=== PATIENT | female | born 1965 | race Caucasian/White ===

== ENCOUNTER 2016-05-04 23:22 | Emergency (ER) | payer OTHER ==
[2016-05-04 23:41] VITALS: O2SAT 97
--- NOTE | 2016-05-05 00:02 | ERPHSYRPT ---
- History of Present Illness Time Seen by Provider: 05/04/16 23:46 Historian: patient Exam Limitations: no limitations Patient Subjective Stated Complaint: "ITS LIKE I HAVE AN ATTACK, LIKE I ATE AND NOTHING WILL GO DOWN-THE PAIN GOES INTO MY BACK, IT FEELS LIKE I AM HAVING A HEART ATTACK." PT STATES SHE HAS DIARRHEA AND ABD CRAMPING SOON AFTER MEALS Triage Nursing Assessment: PT IS AOX3, AMBULATORY WITH RIGID GAIT TO TRT ROOM, UNABLE TO BEND OVER WITH SOME ABD GUARDING, DISTENDED ABDOMEN, SKIN IS PALE, WARM AND DRY. RESP ARE SHALLOW PER PAIN. Physician History: Patient is a 50-year-old female with her complaining of another "attack " consisting of pain in her abdomen. She's had a few "attacks" since . She's been to the ER twice for these and the other 2 attacks she has managed at home. She has been seen at 2 different ERs in the past. At time she is a poor historian. Today she had diarrhea this morning. Then this evening after eating a minute milkshake which she thought would help her feel better she had severe abdominal pain going through to her back. At times she feels like food does not go on through. She states she has been evaluated with a study on her gallbladder and the surgeon thought it was normal at this time. She is scheduled to have an upper GI scope performed on May 21. She does not know if she can make it that long. She has had reflux in the past for which she takes omeprazole. She has had a gynecologic surgery in the past. She does not smoke. She has an occasional drink. Timing/Duration: today, sudden Activities at Onset: other (eating) Quality: stabbing Abdominal Pain Onset Location: epigastric Pain Radiation: back Severity of Pain-Max: severe Severity of Pain-Current: moderate Modifying Factors: Improves With: eating Associated Symptoms: diarrhea Previous symptoms: same symptoms as today Allergies/Adverse Reactions: No Known Drug Allergies Allergy (Unverified 05/04/16 23:41) Home Medications: Omeprazole [Prilosec] 40 mg PO BID 05/04/16 [History] Hx Tetanus, Diphtheria Vaccination/Date Given: Yes Hx Influenza Vaccination/Date Given: No Hx Pneumococcal Vaccination/Date Given: No Immunizations Up to Date: Yes - Review of Systems Constitutional: No Fever, No Chills Eyes: No Symptoms Ears, Nose, & Throat: No Symptoms Respiratory: No Cough, No Dyspnea Cardiac: No Chest Pain, No Edema, No Syncope Abdominal/Gastrointestinal: Abdominal Pain, Diarrhea Genitourinary Symptoms: No Dysuria Musculoskeletal: No Back Pain, No Neck Pain Skin: No Rash Neurological: No Dizziness, No Focal Weakness, No Sensory Changes Psychological: No Symptoms Endocrine: No Symptoms Hematologic/Lymphatic: No Symptoms Immunological/Allergic: No Symptoms All Other Systems: Reviewed and Negative - Past Medical History Pertinent Past Medical History: Yes Musculoskeletal History: Other Other Medical History: NICKOLAS CARPAL TUNNEL - Past Surgical History Past Surgical History: Yes Musculoskeletal: Orthopedic Surgery Female Surgical History: Dilation & Curettage, Other Other Surgical History: THERMAL ABLATION, CARPAL TUNNEL REPAIR - Social History Smoking Status: Never smoker Exposure to second hand smoke: No Drug Use: none Patient Lives Alone: No - Female History Hx Last Menstrual Period: NA - Nursing Vital Signs Nursing Vital Signs: Initial Vital Signs Temperature 98.0 F Temperature Source Oral Pulse Rate 69 Respiratory Rate 18 Blood Pressure [Right Arm] 129/77 Pain Intensity 7 - Physical Exam General Appearance: mild distress Eye Exam: PERRL/EOMI, eyes nml inspection Ears, Nose, Throat Exam: normal ENT inspection, pharynx normal, moist mucous membranes Neck Exam: normal inspection, non-tender, supple, full range of motion Respiratory Exam: normal breath sounds, lungs clear, No respiratory distress Cardiovascular Exam: regular rate/rhythm, normal heart sounds Gastrointestinal/Abdomen Exam: tenderness (mild epigastric) Pelvic Exam: not done Rectal Exam: not done Back Exam: normal inspection Extremity Exam: normal inspection, normal range of motion, pelvis stable Neurologic Exam: alert, oriented x 3, cooperative, normal mood/affect, nml cerebellar function, sensation nml, No motor deficits Skin Exam: normal color, warm, dry SpO2 Interpretation: normal SpO2: 97 Oxygen Delivery: Room Air - Radiology Exams Abdomen X-ray Interpretation: Interpreted by me, Negative Ordered Tests: Active Orders 24 hr Category Date Time Status IV Insertion STAT Care 05/05/16 00:06 Active KUB Stat Exams 05/05/16 00:07 Taken CBC W DIFF Stat Lab 05/05/16 00:24 Completed CMP Stat Lab 05/05/16 00:24 Completed HCG QUALITATIVE,SERUM Stat Lab 05/05/16 00:24 Completed LIPASE Stat Lab 05/05/16 01:04 Completed Lactic Acid Urgent Lab 05/05/16 00:20 Completed TROPONIN Stat Lab 05/05/16 00:24 Completed UA Stat Lab 05/05/16 00:20 Completed Urine Triage Profile Stat Lab 05/05/16 00:20 Completed Medication Summary Discontinued Medications Generic Name Dose Route Start Last Admin Trade Name Barbara PRN Reason Stop Dose Admin Sodium Chloride 1,000 mls @ 999 mls/hr 05/05/16 00:06 05/05/16 00:30 Sodium Chloride 0.9% 1000 Ml IV 05/05/16 01:06 999 mls/hr .Q1H1M STA Administration Sodium Chloride Confirm 05/05/16 00:25 Sodium Chloride 0.9% 1000 Ml Administered 05/05/16 00:26 Dose 1,000 mls @ ud .ROUTE .STK-MED ONE Ketorolac Tromethamine 30 mg 05/05/16 00:06 05/05/16 00:30 Toradol 30 Mg Injection IV 05/05/16 00:07 30 mg STAT ONE Administration Ketorolac Tromethamine Confirm 05/05/16 00:25 Toradol 30 Mg Injection Administered 05/05/16 00:26 Dose 30 mg .ROUTE .STK-MED ONE Morphine Sulfate 4 mg 05/05/16 01:05 05/05/16 01:17 Morphine Sulfate 4 Mg Inj IV 05/05/16 01:06 4 mg STAT ONE Administration Morphine Sulfate Confirm 05/05/16 01:10 Morphine Sulfate 4 Mg Inj Administered 05/05/16 01:11 Dose 4 mg .ROUTE .STK-MED ONE Ondansetron HCl 4 mg 05/05/16 00:06 05/05/16 00:30 Zofran 4 Mg/2 Ml Vial IV 05/05/16 00:07 4 mg STAT ONE Administration Ondansetron HCl Confirm 05/05/16 00:25 Zofran 4 Mg/2 Ml Vial Administered 05/05/16 00:26 Dose 4 mg .ROUTE .STK-MED ONE Lab/Rad Data: Laboratory Result Diagrams 05/05/16 00:24 05/05/16 00:24 Laboratory Results 05/05/16 05/05/16 05/05/16 Range/Units 01:04 00:24 00:24 WBC (4.0-10.5) K/mm3 RBC (4.1-5.4) M/mm3 Hgb (12.0-16.0) gm/dl Hct (35-47) % MCV (78-100) fl MCH (26-32) pg MCHC (32-36) g/dl RDW (11.5-14.0) % Plt Count (150-450) K/mm3 MPV (6-9.5) fl Gran % (36.0-66.0) % Lymphocytes % (24.0-44.0) % Monocytes % (0.0-12.0) % Eosinophils % (0.00-5.0) % Basophils % (0.0-0.4) % Basophils # (0-0.4) Sodium 139 (136-145) mEq/L Potassium 3.9 (3.5-5.1) mEq/L Chloride 103 (98-107) mEq/L Carbon Dioxide 28.4 (21-32) mEq/L Anion Gap 11.1 (5-15) MEQ/L BUN 9 (9-20) mg/dL Creatinine 0.93 (0.55-1.30) mg/dl Estimated GFR > 60 ML/MIN Glucose 115 H (70-110) MG/DL Lactic Acid (0.4-2.0) Calcium 9.0 (8.5-10.1) mg/dL Total Bilirubin 0.6 (0.2-1.0) mg/dL AST 184 H (15-37) U/L ALT 103 H (12-78) U/L Alkaline Phosphatase 97 (46-116) U/L Troponin I < 0.017 (0.000-0.056) ng/ml Serum Total Protein 8.1 (6.4-8.2) gm/dL Albumin 4.0 (3.4-5.0) g/dL Lipase 217 (73-393) U/L Serum , Qual NEGATIVE (Negative) Ur Collection Type Urine Color (YELLOW) Urine Appearance (CLEAR) Urine pH (5-6) Ur Specific Pierson (1.005-1.025) Urine Protein (Negative) Urine Glucose (UA) (NEGATIVE) mg/dL Urine Ketones (NEGATIVE) Urine Nitrite (NEGATIVE) Urine Bilirubin (NEGATIVE) Urine Urobilinogen (0-1) mg/dL Urine WBC (Auto) (NEGATIVE) Urine RBC (Auto) (0-5) Cheng/ul Urine Opiates Level (NEGATIVE) Ur Methadone (NEGATIVE) Urine Barbiturates (NEGATIVE) Ur Phencyclidine (PCP) (NEGATIVE) Urine Amphetamine (NEGATIVE) U Benzodiazepine Level (NEGATIVE) Urine Cocaine (NEGATIVE) Urine Marijuana (THC) (NEGATIVE) Specimen Received 05/05/16 05/05/16 05/05/16 Range/Units 00:24 00:20 00:20 WBC 9.3 (4.0-10.5) K/mm3 RBC 4.61 (4.1-5.4) M/mm3 Hgb 14.3 (12.0-16.0) gm/dl Hct 43.4 (35-47) % MCV 94.1 (78-100) fl MCH 31.0 (26-32) pg MCHC 32.9 (32-36) g/dl RDW 13.6 (11.5-14.0) % Plt Count 221 (150-450) K/mm3 MPV 10.7 H (6-9.5) fl Gran % 73.9 H (36.0-66.0) % Lymphocytes % 16.7 L (24.0-44.0) % Monocytes % 8.3 (0.0-12.0) % Eosinophils % 0.8 (0.00-5.0) % Basophils % 0.3 (0.0-0.4) % Basophils # 0.03 (0-0.4) Sodium (136-145) mEq/L Potassium (3.5-5.1) mEq/L Chloride (98-107) mEq/L Carbon Dioxide (21-32) mEq/L Anion Gap (5-15) MEQ/L BUN (9-20) mg/dL Creatinine (0.55-1.30) mg/dl Estimated GFR ML/MIN Glucose (70-110) MG/DL Lactic Acid (0.4-2.0) Calcium (8.5-10.1) mg/dL Total Bilirubin (0.2-1.0) mg/dL AST (15-37) U/L ALT (12-78) U/L Alkaline Phosphatase (46-116) U/L Troponin I (0.000-0.056) ng/ml Serum Total Protein (6.4-8.2) gm/dL Albumin (3.4-5.0) g/dL Lipase (73-393) U/L Serum , Qual (Negative) Ur Collection Type CLEAN CATCH Urine Color YELLOW (YELLOW) Urine Appearance CLEAR (CLEAR) Urine pH 7.0 (5-6) Ur Specific Pierson 1.020 (1.005-1.025) Urine Protein NEGATIVE (Negative) Urine Glucose (UA) NEGATIVE (NEGATIVE) mg/dL Urine Ketones NEGATIVE (NEGATIVE) Urine Nitrite NEGATIVE (NEGATIVE) Urine Bilirubin NEGATIVE (NEGATIVE) Urine Urobilinogen 4 (0-1) mg/dL Urine WBC (Auto) NEGATIVE (NEGATIVE) Urine RBC (Auto) NEGATIVE (0-5) Cheng/ul Urine Opiates Level NEG. (NEGATIVE) Ur Methadone NEG. (NEGATIVE) Urine Barbiturates NEG. (NEGATIVE) Ur Phencyclidine (PCP) NEG. (NEGATIVE) Urine Amphetamine NEG. (NEGATIVE) U Benzodiazepine Level NEG. (NEGATIVE) Urine Cocaine NEG. (NEGATIVE) Urine Marijuana (THC) NEG. (NEGATIVE) Specimen Received 05/05/16:0020 05/05/16 Range/Units 00:20 WBC (4.0-10.5) K/mm3 RBC (4.1-5.4) M/mm3 Hgb (12.0-16.0) gm/dl Hct (35-47) % MCV (78-100) fl MCH (26-32) pg MCHC (32-36) g/dl RDW (11.5-14.0) % Plt Count (150-450) K/mm3 MPV (6-9.5) fl Gran % (36.0-66.0) % Lymphocytes % (24.0-44.0) % Monocytes % (0.0-12.0) % Eosinophils % (0.00-5.0) % Basophils % (0.0-0.4) % Basophils # (0-0.4) Sodium (136-145) mEq/L Potassium (3.5-5.1) mEq/L Chloride (98-107) mEq/L Carbon Dioxide (21-32) mEq/L Anion Gap (5-15) MEQ/L BUN (9-20) mg/dL Creatinine (0.55-1.30) mg/dl Estimated GFR ML/MIN Glucose (70-110) MG/DL Lactic Acid 1.2 (0.4-2.0) Calcium (8.5-10.1) mg/dL Total Bilirubin (0.2-1.0) mg/dL AST (15-37) U/L ALT (12-78) U/L Alkaline Phosphatase (46-116) U/L Troponin I (0.000-0.056) ng/ml Serum Total Protein (6.4-8.2) gm/dL Albumin (3.4-5.0) g/dL Lipase (73-393) U/L Serum , Qual (Negative) Ur Collection Type Urine Color (YELLOW) Urine Appearance (CLEAR) Urine pH (5-6) Ur Specific Pierson (1.005-1.025) Urine Protein (Negative) Urine Glucose (UA) (NEGATIVE) mg/dL Urine Ketones (NEGATIVE) Urine Nitrite (NEGATIVE) Urine Bilirubin (NEGATIVE) Urine Urobilinogen (0-1) mg/dL Urine WBC (Auto) (NEGATIVE) Urine RBC (Auto) (0-5) Cheng/ul Urine Opiates Level (NEGATIVE) Ur Methadone (NEGATIVE) Urine Barbiturates (NEGATIVE) Ur Phencyclidine (PCP) (NEGATIVE) Urine Amphetamine (NEGATIVE) U Benzodiazepine Level (NEGATIVE) Urine Cocaine (NEGATIVE) Urine Marijuana (THC) (NEGATIVE) Specimen Received - Progress Progress: improved Progress Note: 05/05/16 01:28 After NS 1000 ml, toradol 30 mg, and MSO4 4 mg IV, pt is feeling much better. Counseled pt/family regarding: lab results, diagnosis, need for follow-up, rad results - Departure Time of Disposition: 01:29 Departure Disposition: Home Clinical Impression: Abdominal pain Condition: Stable Critical Care Time: No Additional Instructions: Tylenol and Ibuprofen as needed. Follow up with the scheduled appt with the surgeon on May 21.
[2016-05-05] MEDS ORDERED: TORAdol 30 mg Injection IV ONE (00:06)
[2016-05-05] MEDS ORDERED: Zofran 4 MG/2 ML VIAL IV ONE (00:06)
[2016-05-05] MEDS ORDERED: Sodium Chloride 0.9% 1000 ML 1,000 ML IV STA (00:06)
[2016-05-05] MEDS ORDERED: Zofran 4 MG/2 ML VIAL ONE (00:25)
[2016-05-05] MEDS ORDERED: Sodium Chloride 0.9% 1000 ML 1,000 ML ONE (00:25)
[2016-05-05] MEDS ORDERED: TORAdol 30 mg Injection ONE (00:25)
[2016-05-05 00:28] LABS: BASOPHIL % 0.3 % (0.0-0.4); Eosinophil % 0.8 % (0.00-5.0); Granulocytes % 73.9 % (36.0-66.0); Lymphocytes % 16.7 % (24.0-44.0); Mean Cell Volume 94.1 fl (78-100); Mean Platelet Volume 10.7 fl (6-9.5); Monocytes % 8.3 % (0.0-12.0); Platelet Count 221 K/mm3 (150-450); Red Blood Count 4.61 M/mm3 (4.1-5.4); Red Cell Distribution Width 13.6 % (11.5-14.0); White Blood Count 9.3 K/mm3 (4.0-10.5)
[2016-05-05 00:29] LABS: Collection Type CLEAN CATCH
[2016-05-05 00:30] LABS: COMPLETE URINE MICROSCOPIC? NO
[2016-05-05 00:51] LABS: ALKALINE PHOSPHATASE 97 U/L (46-116); ANION GAP 11.1 MEQ/L (5-15); BILIRUBIN,TOTAL 0.6 mg/dL (0.2-1.0); BLOOD UREA NITROGEN 9 mg/dL (9-20); CHLORIDE 103 mEq/L (98-107); Carbon Dioxide 28.4 mEq/L (21-32); Glucose 115 MG/DL (70-110); Potassium 3.9 mEq/L (3.5-5.1); SGOT/AST 184 U/L (15-37); SGPT/ALT 103 U/L (12-78); SODIUM 139 mEq/L (136-145); Total Protein 8.1 gm/dL (6.4-8.2)
[2016-05-05 00:52] LABS: TROPONIN < 0.017 ng/ml (0.000-0.056)
[2016-05-05] MEDS ORDERED: MORPHINE SULFATE 4 MG INJ IV ONE (01:05)
[2016-05-05] MEDS ORDERED: MORPHINE SULFATE 4 MG INJ ONE (01:10)
[2016-05-05 01:42] VITALS: BP 127/87; PULSE 64
--- NOTE | 2016-05-05 08:59 | XRAY ---
Indication: Abdominal pain. Comparison: None KUB nonacute and nonobstructed. Solid organs and osseous structures are unremarkable.
== END 2016-05-05 01:55 | disposition home or self-care (01) ==
LOC: ED 23:22
DX: R10.13 Epigastric pain (principal); R19.7 Diarrhea, unspecified
CPT/HCPCS: 36000; 36415; 74000; 80053; 80307; 81002; 83605; 83690; 84484; 84703; 85025; 96360; 96374; 96375; 99283; 99284; J1885; J2270; J2405